=== PATIENT | male | born 1980 | race Asian ===

== ENCOUNTER 2018-09-10 16:21 | Inpatient (IN) | payer MEDICAID, OTHER ==
[~2018-09-10] VITALS: Ht 177.8 cm; Wt 84.9 kg
[~2018-09-10 16:21] MED LIST: AMOX1TAB64 PO; ASPI-621 PO; ATORVASTATIN 40 MG; LISI-167 PO; MELO15TA24 PO; METO25TA35 PO; PRAS10TA4 PO; SIMV40TA PO
[2018-09-10 16:55] LABS: BASOPHILS # (AUTO) 0.06 x10^3/uL (0-0.1); BASOPHILS % (AUTO) 1 % (0-1); EOSINOPHILS # (AUTO) 0.02 x10^3/uL (0-0.4); EOSINOPHILS % (AUTO) 0 % (1-7); LYMPHOCYTES # (AUTO) 1.64 x10^3/uL (1-3.4); LYMPHOCYTES % (AUTO) 20 % (22-44); MD NO; MEAN CORPUSCULAR HEMOGLOBIN 30.1 pg (27.5-34.5); MEAN CORPUSCULAR HGB CONC 34.2 g/dL (33.2-36.2); MEAN CORPUSCULAR VOLUME 88.2 fL (81-97); MONOCYTES # (AUTO) 0.43 x10^3/uL (0.2-0.8); MONOCYTES % (AUTO) 5 % (2-9); NEUTROPHILS # (AUTO) 6.21 x10^3/uL (1.8-6.8); NEUTROPHILS % (AUTO) 74 % (42-75); PLATELET COUNT 310 x10^3/uL (130-400); RED BLOOD COUNT 6.06 x10^6/uL (4.38-5.82); RED CELL DISTRIBUTION WIDTH 13.4 % (9.4-14.8)
[2018-09-10 17:01] LABS: ANION GAP 9 mmol/L (5-15); CHLORIDE 109 mmol/L (98-107); CREATININE 0.95 mg/dL (0.7-1.3)
[2018-09-10 17:02] LABS: INTERNATIONAL NORMALIZED RATIO 1.03 (0.93-1.1); PROTHROMBIN TIME 10.6 Seconds (9.6-11.5)
[2018-09-10 17:56] LABS: TROPONIN I < 0.015 ng/mL (0.000-0.045)
[2018-09-10] MEDS ORDERED: ASPIRIN 81 MG TABLET CHEW PO ONE (18:00)
[2018-09-10] MEDS ORDERED: ASPIRIN 81 MG TABLET CHEW ONE (18:41)
[2018-09-10] MEDS ORDERED: ACETAMINOPHEN 325 MG TABLET PO PRN (20:30)
[2018-09-10] MEDS ORDERED: DOCUSATE 100 MG CAPSULE PO PRN (20:30)
[2018-09-10 22:29] VITALS: BP 162/98
[2018-09-11 02:58] VITALS: BP 149/103
[2018-09-11 06:02] LABS: LDL/HDL RATIO 2.4 (0.5-3.0)
[2018-09-11 07:40] VITALS: BP 147/96
[2018-09-11 07:57] LABS: BASOPHILS # (AUTO) 0.01 x10^3/uL (0-0.1); BASOPHILS % (AUTO) 0 % (0-1); EOSINOPHILS # (AUTO) 0.05 x10^3/uL (0-0.4); EOSINOPHILS % (AUTO) 1 % (1-7); LYMPHOCYTES # (AUTO) 2.17 x10^3/uL (1-3.4); LYMPHOCYTES % (AUTO) 26 % (22-44); MD NO; MEAN CORPUSCULAR HEMOGLOBIN 29.9 pg (27.5-34.5); MEAN CORPUSCULAR HGB CONC 33.8 g/dL (33.2-36.2); MEAN CORPUSCULAR VOLUME 88.4 fL (81-97); MEAN PLATELET VOLUME 9.4 fL (7.4-10.4); MONOCYTES % (AUTO) 6 % (2-9); NEUTROPHILS # (AUTO) 5.68 x10^3/uL (1.8-6.8); NEUTROPHILS % (AUTO) 68 % (42-75); PLATELET COUNT 261 x10^3/uL (130-400); RED CELL DISTRIBUTION WIDTH 13.5 % (9.4-14.8)
[2018-09-11] MEDS ORDERED: GADOBUTROL 10 MMOL/10 ML PFS ONE (09:46)
[2018-09-11] MEDS: ASPIRIN 81 MG TABLET CHEW PO/NG SCH (10:28)
[2018-09-11 13:02] VITALS: BP 134/92
[2018-09-11] MEDS ORDERED: ASPI-621 PO (15:41)
[2018-09-11] MEDS ORDERED: ATOR40TA78 PO ×2 (15:49→22:32)
[2018-09-11] MEDS ORDERED: METO25TA35 PO ×2 (15:50→22:32)
[2018-09-11 20:00] VITALS: BP 146/93
[2018-09-11] MEDS ORDERED: ATORVASTATIN 40 MG TABLET PO SCH (21:00)
[2018-09-12 01:00] VITALS: BP 138/94
[2018-09-12] MEDS ORDERED: METOPROLOL TARTRATE 25 MG TABLET PO SCH (06:00)
[2018-09-12 07:17] VITALS: BP 132/86
[2018-09-12] MEDS ORDERED: AMLODIPINE 2.5 MG TABLET PO SCH (09:00)
[2018-09-12] MEDS: ASPIRIN 81 MG TABLET CHEW PO/NG SCH (10:58)
[2018-09-12 13:28] VITALS: BP 134/88
== END 2018-09-12 15:40 | disposition home or self-care (01) | DRG 69 ==
LOC: ED 19:04 → EDIP 20:17 → 4WST 23:01 → DCLOUNGE 09-12 15:29
PROVIDERS: ADMIT Hospitalist; ATTEND Hospitalist
DX: G45.9 Transient cerebral ischemic attack, unspecified (principal); D75.1 Secondary polycythemia; G46.0 Middle cerebral artery syndrome; E78.5 Hyperlipidemia, unspecified; F41.9 Anxiety disorder, unspecified; I11.9 Hypertensive heart disease without heart failure; I25.2 Old myocardial infarction; Z80.0 Family history of malignant neoplasm of digestive organs; Z82.3 Family history of stroke; Z82.49 Family history of ischemic heart disease and other diseases of the circulatory system; Z87.891 Personal history of nicotine dependence; Z91.14 Patient's other noncompliance with medication regimen; Z88.8 Allergy status to other drugs, medicaments and biological substances
CPT/HCPCS: 0399T; 36415; 70450; 70551; 70553; 80048; 80061; 82040; 84484; 85025; 85610; 85730; 93005; 93306; 93880; 99285; A9585; G0378; 92523-GN

== ENCOUNTER 2019-09-05 15:56 | Emergency (ER) | payer MEDICAID ==
[~2019-09-05] VITALS: Ht 177.8 cm; Wt 93.5 kg
[~2019-09-05 15:56] MED LIST changes: -ASPI-621 PO; +ASPI81TA45 PO; +ATOR40TA78 PO
[2019-09-05 16:19] VITALS: BP 164/103
[2019-09-05] MEDS ORDERED: ACETAMINOPHEN 325 MG TABLET ONE (17:45)
[2019-09-05] MEDS ORDERED: ACETAMINOPHEN 325 MG TABLET PO ONE (18:00)
== END 2019-09-05 19:23 | disposition home or self-care (01) ==
LOC: ED 19:05
DX: M54.16 Radiculopathy, lumbar region (principal); G89.29 Other chronic pain; M51.26 Other intervertebral disc displacement, lumbar region; Z76.0 Encounter for issue of repeat prescription; I10 Essential (primary) hypertension; I25.2 Old myocardial infarction; Z86.73 Personal history of transient ischemic attack (TIA), and cerebral infarction without residual deficits; Z87.891 Personal history of nicotine dependence
CPT/HCPCS: 72110; 72131; 99284

== ENCOUNTER 2019-10-07 14:56 | Emergency (ER) | payer MEDICAID ==
[~2019-10-07] VITALS: Ht 177.8 cm; Wt 95.0 kg
[2019-10-07 15:59] LABS: TROPONIN I < 0.015 ng/mL (0.000-0.045)
--- NOTE | 2019-10-07 16:31 | NUR ---
PT. WAS GIVEN DISCHARGE INSTRUCTIONS AND SCRIPTS WITH UNDERSTANDING VERBALIZED ALONG WITH WILLINGNESS TO COMPLY. PT. WAS AMBULATORY TO THE DISCHARGE DESK.
[2019-10-07 16:33] VITALS: BP 145/82
== END 2019-10-07 16:36 | disposition home or self-care (01) ==
LOC: ED 16:05
DX: M25.511 Pain in right shoulder (principal); F10.10 Alcohol abuse, uncomplicated; Y90.0 Blood alcohol level of less than 20 mg/100 ml; Z72.9 Problem related to lifestyle, unspecified; Z76.0 Encounter for issue of repeat prescription; I25.2 Old myocardial infarction; I10 Essential (primary) hypertension; Z86.73 Personal history of transient ischemic attack (TIA), and cerebral infarction without residual deficits; Z87.891 Personal history of nicotine dependence
CPT/HCPCS: 36415; 71046; 84484; 93005; 99284